=== PATIENT | female | born 1985 | race African-American/Black ===

== ENCOUNTER 2023-03-25 18:06 | Emergency (ER) | payer MEDICAID ==
[~2023-03-25] VITALS: Ht 172.7 cm; Wt 77.0 kg
[2023-03-25 18:14] VITALS: BP 138/83; PULSE 74; RESP 16; TEMP 97.6; O2SAT 100
[2023-03-25 18:58] LABS: BASOPHILS % 0.2 % (0.0-2.0); EOSINOPHILS % 0.9 % (0.0-5.0); HEMATOCRIT. 41.4 % (36.0-48.0); HEMOGLOBIN. 13.1 g/dL (12.0-16.0); LYMPHOCYTES % 13.9 % (20.0-50.0); MEAN CORPUSCULAR HEMOGLOBIN 26.6 pg (28.0-32.0); MEAN CORPUSCULAR HGB CONC 31.7 g/dL (31.0-37.0); MEAN CORPUSCULAR VOLUME 83.7 fL (81.0-99.0); MEAN PLATELET VOLUME 10.1 fl (7.4-10.4); MONOCYTES % 3.4 % (2.0-8.0); NEUTROPHILS % 81.6 % (40.0-76.0); PLATELET 180 x1000/uL (130-400); RED BLOOD CELL COUNT 4.95 mill/uL (4.2-5.4); RED CELL DISTRIBUTION WIDTH 14.2 % (11.6-14.6); WHITE BLOOD COUNT 13.9 x1000/uL (4.5-11.0)
[2023-03-25 19:02] LABS: DIFFERENTIAL COMMENT 1
[2023-03-25 19:10] LABS: CLARITY URINE CLOUDY (CLEAR); COLOR URINE YELLOW (YELLOW); GLUCOSE URINE NEGATIVE (NEGATIVE); KETONES URINE NEGATIVE (NEGATIVE); LEUKOCYTE ESTERASE URINE 2+ (NEGATIVE); NITRITE URINE NEGATIVE (NEGATIVE); OCCULT BLOOD URINE TRACE (NEGATIVE); PROTEIN URINE NEGATIVE (NEGATIVE); SPECIFIC GRAVITY URINE 1.023 (1.005-1.030)
[2023-03-25 19:12] LABS: CHLORIDE 106 mEq/L (98-107); INDEX HEMOLYSI 1 (1-3); INDEX ICTERIC 1 (1-4); INDEX LIPEMIC 1 (1-3); POTASSIUM 3.5 mEq/L (3.5-5.1); SODIUM 140 mEq/L (136-145)
[2023-03-25 19:14] LABS: CALCIUM 8.8 mg/dL (8.5-10.1)
[2023-03-25 19:22] LABS: ALANINE AMINOTRANSFERASE 34 IU/L (13-61); ALBUMIN 4.3 g/dL (3.4-5.0); ASPARTATE AMINOTRANSFERASE 23 IU/L (15-37); B-HCG QUANTITATIVE < 1 mIU/mL (<3); BILIRUBIN TOTAL 0.5 mg/dL (0.1-1.0); CARBON DIOXIDE 30 mEq/L (21-32); CREATININE 0.8 mg/dL (0.6-1.3); GLUCOSE 108 mg/dL (70-105); UREA NITROGEN BLOOD 12 mg/dL (7-21)
[2023-03-25 20:06] LABS: BACTERIA URINE 1+; RBC URINE 0-2 /hpf (0-2); SQUAMOUS EPITHELIAL CELL URINE 1+ /lpf (RARE/1+)
[2023-03-25] MEDS ORDERED: NITR-87 MT (20:39)
[2023-03-25] MEDS ORDERED: ONDA4TAB50 MT (20:39)
[2023-03-25] MEDS ORDERED: ONDANSETRON 4MG ODT PO ONE (20:45)
== END 2023-03-25 20:52 | disposition home or self-care (01) ==
LOC: ER 18:06
DX: N30.00 Acute cystitis without hematuria (principal); R11.2 Nausea with vomiting, unspecified
CPT/HCPCS: 99283; 80053; 81003; 81025; 84702; 85025; 86850; 86900; 86901; 87086; 36415; Q0162